=== PATIENT | female | born 1990 | race Caucasian/White ===

== ENCOUNTER → 2017-11-07 | Outpatient (CLI) | payer OTHER ==
[2017-11-07 17:24] LABS: HCT 34.6 % (34.0-46.0); HGB 11.5 gm/dL (11.4-16.0); MCH 31.3 pg (25.0-35.0); MCHC 33.4 g/dL (31.0-37.0); MCV 93.8 fL (80.0-100.0); Mean Platelet Volume 6.3; Platelet Count 290 k/uL (150-450); RBC 3.68 m/uL (3.80-5.40); RDW 13.3 % (11.5-15.5)
[2017-11-07 17:27] LABS: Glucose 76 mg/dL (74-99)
[2017-11-08 02:13] LABS: HIV AB P24 Non-Reactive (Non-Reactive); HIV P24 AG Non-Reactive (Non-Reactive)
--- NOTE | 2017-11-08 11:51 | US ---
EXAMINATION TYPE: Transabdominal DATE OF EXAM: 07/05/17 COMPARISON: NONE CLINICAL HISTORY: Z36 Confirm Dates. Dates, Unknown LMP EXAM PERFORMED: Transabdominal (TA) EXAM MEASUREMENTS: GESTATIONAL AGE / DATING Dates by LMP: LMP unknown Dates by Current Scan for: (10 weeks/4 days) EDC: 06/01/2018 MATERNAL ANATOMY Uterus: 10.5 x 7.1 x 7.1 cm Right Ovary: 3.8 x 2.4 x 2.4 cm Left Ovary: 3.1 x 1.5 x 1.5 cm Post CDS / Adnexa: no free fluid Presence of free fluid: no Presence of corpus luteal cyst: right ovarian lesion = 2.2 x 2.1 x 2.2 cm Presence of subchorionic bleed: no GESTATION / SURVEY CRL: 3.6 cm (10 weeks/4 days) MSD: seen, not measured Yolk Sac (normal less than 6mm): 3.9 mm Heart Rate: 175 bpm Rhythm: Normal IUP: Viable IUP Date of LMP: Unknown, Beta HcG (if available): Not available at this time Single live IUP measuring 10 weeks 4 days IMPRESSION: 1. Single intrauterine gestation estimated at 10 weeks 4 days gestation based on current crown-rump l ength. Cardiac activity measures 175 bpm.
== END | disposition home or self-care (01) ==
LOC: RADUSWWP 16:34
PROVIDERS: ATTEND Obstetrics & Gynecology
DX: Z36.9 Encounter for antenatal screening, unspecified (principal); O26.811 Pregnancy related exhaustion and fatigue, first trimester; Z3A.10 10 weeks gestation of pregnancy
CPT/HCPCS: 36415; 76801; 82565; 82947; 85027; 86762; 86780; 86850; 86900; 86901; 87340; 87390

== ENCOUNTER 2018-05-25 05:35 | Inpatient (IN) | payer OTHER ==
--- NOTE | 2018-05-24 22:01 | P.HPOB ---
History of Present Illness H&P Date: 05/24/18 Chief Complaint: Induction of labor This is a 27-year-old female 2 para 1 with an estimated date of confinement of 06/01/2018, estimated gestational age of 39-0/7 weeks, who presents to labor and delivery for induction of labor. She complains of irregular contractions and pressure. course has been essentially uncomplicated. labs Hepatitis B surface antigen-negative on reactive Rubella-immune Syphilis antibody-negative nonreactive HIV-nonreactive Random glucose-76 Hemoglobin-11.5 Blood type-A+ Antibody screen-negative Obstetrical ultrasound-normal anatomy One hour Glucola-125 Group B streptococcus-negative Obstetrical history: . History of 1 vaginal delivery at term with no complications. Gynecologic history: History of chlamydia treated in 2013. Social history: She is single. 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 Review of Systems Constitutional: Denies chills, Denies fever Eyes: denies blurred vision, denies pain Ears, nose, mouth and throat: Denies headache, Denies sore throat Respiratory: Denies cough Gastrointestinal: Reports abdominal pain (Irregular contractions) Genitourinary: Reports pelvic pain, Reports Musculoskeletal: Reports low back pain Integumentary: Denies pruritus, Denies rash Neurological: Denies numbness, Denies weakness Psychiatric: Denies anxiety, Denies depression Past Medical History Past Medical History: No Reported History History of Any Multi-Drug Resistant Organisms: None Reported Past Surgical History: No Surgical Hx Reported Past Anesthesia/Blood Transfusion Reactions: No Reported Reaction Past Psychological History: No Psychological Hx Reported Smoking Status: Current every day smoker Past Alcohol Use History: None Reported Past Drug Use History: None Reported - Past Family History Father Family Medical History: COPD Medications and Allergies Home Medications Medication Instructions Recorded Confirmed Type Pnv,Calcium 72/Iron/Folic Acid 1 tab PO DAILY 10/30/14 10/30/14 History [Pnv Plus Multivit Tab] Allergies Allergy/AdvReac Type Severity Reaction Status Date / Time No Known Allergies Allergy Verified 10/30/14 04:48 Exam Osteopathic Statement: *. No significant issues noted on an osteopathic structural exam other than those noted in the History and Physical/Consult. HEENT: Within normal limits Heart: Regular rate and rhythm Lungs: Clear to auscultation bilaterally Abdomen: Cervix: 4-1/2-5 cm/80%/-1 station heart tones: 140s by Doppler Extremities: Negative Maurisio Assessment and Plan (1) 39 weeks gestation of Status: Acute Code(s): Z3A.39 - 39 WEEKS GESTATION OF SNOMED Code( s): 64050339 Plan: Proceed with oxytocin induction of labor. Expected management. Epidural anesthesia if desired.
[2018-05-25] MEDS ORDERED: METHYLERGONOVINE 0.2 MG/ML 1 ML AMP IM PRN (05:58)
[2018-05-25] MEDS ORDERED: OXYTOCIN 30 UNITS/500 ML NS 30 UNIT in SALINE 1 500ML.BAG IV SCH (05:58)
[2018-05-25] MEDS ORDERED: TERBUTALINE 1 MG/ML VIAL SQ PRN (05:58)
[2018-05-25] MEDS ORDERED: LIDOCAINE 0.5% (PF) 5 MG/ML (50 ML SDV) SQ PRN (05:58)
[2018-05-25] MEDS ORDERED: CARBOPROST TROMETHAMINE 250 MCG/ML 1 ML AMP IM PRN (05:58)
[2018-05-25] MEDS ORDERED: LIDOCAINE 1% 20 ML VIAL (10MG/ML) FOR IV START INTRADERMA PRN (05:58)
[2018-05-25] MEDS ORDERED: OXYTOCIN 10 UNIT/ML 1 ML VIAL IM PRN (05:58)
[2018-05-25 06:04] VITALS: RESP 16; BMI 23.7
[2018-05-25] MEDS: LACTATED RINGERS 1,000 ML IV SCH ×2 (06:19→08:58)
[2018-05-25 06:23] LABS: Basophils % (A) 0 %; Eosinophils # (A) 0.2 k/uL (0-0.7); Eosinophils % (A) 2 %; HGB 12.8 gm/dL (11.4-16.0); Lymphocytes # (A) 2.6 k/uL (1.0-4.8); Lymphocytes % (A) 24 %; MCH 31.8 pg (25.0-35.0); MCV 99.3 fL (80.0-100.0); Mean Platelet Volume 7.5; Monocytes # (A) 0.6 k/uL (0-1.0); Monocytes % (A) 6 %; Neutrophils # (A) 6.7 k/uL (1.3-7.7); Neutrophils % (A) 64 %; Platelet Count 284 k/uL (150-450); RBC 4.03 m/uL (3.80-5.40); RDW 12.5 % (11.5-15.5); WBC 10.5 k/uL (3.8-10.6)
[2018-05-25] MEDS ORDERED: fentaNYL (PF) 50 MCG/ML 5 ML AMP ONE (08:26)
[2018-05-25] MEDS ORDERED: SODIUM CHLORIDE 0.9% 100 ML BAG ONE (08:26)
[2018-05-25] MEDS ORDERED: ROPIVACAINE 5MG/ML 20ML VIAL ONE (08:26)
[2018-05-25] MEDS ORDERED: IBUPROFEN 600 MG TAB PO PRN (11:28)
[2018-05-25] MEDS ORDERED: diphenhydrAMINE 25 MG CAP PO PRN (11:28)
[2018-05-25] MEDS ORDERED: SIMETHICONE 80 MG CHEWABLE PO PRN (11:28)
[2018-05-25] MEDS ORDERED: OXYTOCIN 20 UNITS/1000 ML NS 1,000 ML IV SCH (11:28)
[2018-05-25] MEDS ORDERED: HYDROCORTISONE 2.5% RECTAL CREAM 30 GM TUBE RECTAL PRN (11:28)
[2018-05-25] MEDS ORDERED: LANOLIN CREAM 5 GM TUBE TOPICAL PRN (11:28)
[2018-05-25] MEDS ORDERED: diphenhydrAMINE 50 MG/ML 1 ML VIAL IVP PRN ×2 (11:28)
[2018-05-25] MEDS ORDERED: BENZOCAINE/MENTHOL SPRAY 1 GM/SPRAY AEROSOL TOPICAL PRN (11:28)
[2018-05-25] MEDS ORDERED: WITCH HAZEL 1 EACH MED..PAD TOPICAL PRN (11:28)
[2018-05-25] MEDS ORDERED: ACETAMINOPHEN TAB 325 MG TAB PO PRN (11:28)
[2018-05-25] MEDS ORDERED: ZOLPIDEM 5 MG TAB PO PRN (11:28)
[2018-05-25] MEDS ORDERED: diphenhydrAMINE 50 MG CAP PO PRN (11:28)
[2018-05-25] MEDS: SENNOSIDES-DOCUSATE SODIUM 1 EACH TAB PO SCH ×2 (12:11→20:16)
--- NOTE | 2018-05-25 16:50 | P.PROBDLV ---
Vaginal Delivery Note - . Vaginal Delivery Note: The patient progressed to complete dilation after oxytocin induction of labor and artificial rupture membranes with clear fluid noted. She began pushing. 's head came to a crown. With one further push, the infant's head delivered across the perineum and a right occiput transverse lie followed by the anterior shoulder. Nose and mouth were bulb suctioned at the perineum. With one remaining push, the remainder the infant easily delivered and was placed on mother's abdomen. Brisk cry was noted immediately. A viable male infant was noted with scores of 9 at 1 minute and 9 at 5 minutes and infant weight of 7 lbs. 7 oz. Cord was clamped and cut and infant was taken to warmer for evaluation. Placenta delivered shortly thereafter, intact, with a three-vessel cord. There was noted a slight marginal cord insertion. Uterus contracted well after oxytocin was given and uterine massage was carried out. Inspection of the perineum revealed a first-degree perineal laceration and a small right periurethral laceration. These areas were anesthetized with 1% lidocaine and then sutured with 3-0 Vicryl suture in a running locked fashion. Estimated blood loss is approximately 200 mL's. Mother and are in stable condition.
[2018-05-26 07:42] LABS: Basophils # (A) 0.1 k/uL (0-0.2); Basophils % (A) 0 %; Eosinophils # (A) 0.2 k/uL (0-0.7); Eosinophils % (A) 2 %; HGB 11.8 gm/dL (11.4-16.0); Lymphocytes # (A) 2.7 k/uL (1.0-4.8); Lymphocytes % (A) 23 %; MCH 32.6 pg (25.0-35.0); MCHC 32.8 g/dL (31.0-37.0); MCV 99.6 fL (80.0-100.0); Monocytes # (A) 0.7 k/uL (0-1.0); Monocytes % (A) 7 %; Neutrophils # (A) 7.4 k/uL (1.3-7.7); Neutrophils % (A) 65 %; Platelet Count 228 k/uL (150-450); RBC 3.62 m/uL (3.80-5.40); RDW 12.6 % (11.5-15.5); WBC 11.5 k/uL (3.8-10.6)
[2018-05-26] MEDS: SENNOSIDES-DOCUSATE SODIUM 1 EACH TAB PO SCH (08:11)
[2018-05-26 08:38] VITALS: BP 107/69; PULSE 64; TEMP 97.4
--- NOTE | 2018-05-26 10:56 | P.DS ---
Providers Date of admission: 05/25/18 05:35 Expected date of discharge: 05/26/18 Attending physician: Jenna Keenan Primary care physician: Stated None - Discharge Diagnosis(es) (1) 39 weeks gestation of Current Visit: No Status: Acute Hospital Course: This is a 27-year-old female 2 para 1 at 39-0/7 weeks who presented for induction of labor. She underwent oxytocin induction of labor and delivered vaginally a viable male on 05/25/2018 with scores of 9 at 1 minute and 9 at 5 minutes and infant weight of 7 lbs. 7 oz. Post course has been uncomplicated. She is bottle feeding. Lochia is decreasing. Pain is well -controlled. Vital signs are stable. Abdomen is soft with fundus firm and nontender. Extremities show negative Homans. Impression is status post vaginal delivery day #1. Plan is to discharge home today. Routine instructions are given. She will be given a prescription for ibuprofen. She is advised to follow up in the office in 6 weeks for a check. She is advised to call the office if she has any further questions or concerns prior to her appointment time. Procedures: Oxytocin induction of labor Spontaneous vaginal delivery of a viable male infant on 05/25/2018 Patient Condition at Discharge: Stable Plan - Discharge Summary New Discharge Prescriptions: New Ibuprofen [Motrin] 600 mg PO Q6HR PRN #60 tab PRN Reason: Mild Pain Or Fever >= 100.5 Discharge Medication List Ibuprofen [Motrin] 600 mg PO Q6HR PRN #60 tab 05/26/18 [Rx] Follow up Appointment(s)/Referral(s): Jenna Keenan DO [Doctor of Osteopathic Medicine] - 6 Weeks Activity/Diet/Wound Care/Special Instructions: Instructions 1. Do not begin any exercise program for 3 weeks. 2. Do not resume sexual relations for 3 weeks or longer if uncomfortable. 3. You may take tub baths or showers at any time. 4. You may use tampons if desired after 3 weeks. 5. Keep the area of episiotomy (stitches) clean and dry. 6. If you are not nursing, wear a good fitting, supportive bra during the day and limit fluid intake for at least 1 week to prevent breast engorgement. 7. Call the office, [phone], within the next week to make appointment for your 6 week checkup if it has not already been made. 8. Report any of the following occurrences to the doctor promptly: a. Heavy, excessive bleeding b. Chills, fever c. Burning or frequency of urination d. Pain or redness and breasts if nursing e. Increasing pain or swelling in episiotomy (stitches). In addition to the above instructions, the following additional should be followed: 1. No heavy lifting or straining (exercising) until after 6 week checkup. 2. Keep abdominal incision clean and dry: You may wear a dressing if more comfortable. 3. Make office appointment for 10 days after going home or as instructed by her doctor. Discharge Disposition: HOME SELF-CARE
== END 2018-05-26 12:45 | disposition home or self-care (01) | DRG 807 ==
LOC: 4FBP 05:35
PROVIDERS: ADMIT Obstetrics & Gynecology; ATTEND Obstetrics & Gynecology
PROC: 10E0XZZ Delivery of Products of Conception, External Approach (ICD-10-PCS; principal; 2018-05-25)
PROC: 10907ZC Drainage of Amniotic Fluid, Therapeutic from Products of Conception, Via Natural or Artificial Opening (ICD-10-PCS; 2018-05-25)
PROC: 0HQ9XZZ Repair Perineum Skin, External Approach (ICD-10-PCS; 2018-05-25)
PROC: 3E0R3BZ Introduction of Anesthetic Agent into Spinal Canal, Percutaneous Approach (ICD-10-PCS; 2018-05-25)
PROC: 0UQMXZZ Repair Vulva, External Approach (ICD-10-PCS; 2018-05-25)
PROC: 3E033VJ Introduction of Other Hormone into Peripheral Vein, Percutaneous Approach (ICD-10-PCS; 2018-05-25)
DX: O32.2XX0 Maternal care for transverse and oblique lie, not applicable or unspecified (principal); Z37.0 Single live birth; O99.334 Smoking (tobacco) complicating childbirth; F17.200 Nicotine dependence, unspecified, uncomplicated; O71.82 Other specified trauma to perineum and vulva; O70.0 First degree perineal laceration during delivery; Z3A.39 39 weeks gestation of pregnancy; Z82.5 Family history of asthma and other chronic lower respiratory diseases; Z79.899 Other long term (current) drug therapy
CPT/HCPCS: 85025; 86850; 86900; 86901

== ENCOUNTER 2019-03-13 15:24 | Inpatient (IN) | payer OTHER ==
[2019-03-13] MEDS ORDERED: OXYTOCIN 20 UNITS/1000 ML NS 1,000 ML IV SCH ×2 (15:30→16:15)
[2019-03-13] MEDS ORDERED: NALOXONE 0.4 MG/ML 1 ML VIAL IV PRN (15:34)
--- NOTE | 2019-03-13 15:34 | ED ---
General Adult HPI - General Stated complaint: /delivery Source: EMS Mode of arrival: EMS Limitations: no limitations - History of Present Illness Initial comments: The patient is a 28-year-old female who is who arrives just immediately after delivery. She was 33 weeks . She went to work this morning and had the sensation that she had a have a bowel movement. She then noted that she started having lower abdominal cramping and bleeding. EMS was called and during transport they stated that the patient was delivering the head. The patient does arrive to our facility and the baby is completely delivered as well as the placenta. She does have a history of 2 previous spontaneous vaginal deliveries. No Occasions this . Her due date was April 25. She sees Dr[address] Keenan and has received care. There are no other alleviating, precipitating or modifying factors - Related Data Previous Rx's Medication Instructions Recorded Ibuprofen [Motrin] 600 mg PO Q6HR PRN #60 tab 05/26/18 Allergies Allergy/AdvReac Type Severity Reaction Status Date / Time No Known Allergies Allergy Verified 05/25/18 05:58 Review of Systems ROS Statement: Those systems with pertinent positive or pertinent negative responses have been documented in the HPI. ROS Other: All systems not noted in ROS Statement are negative. Past Medical History Past Medical History: No Reported History History of Any Multi-Drug Resistant Organisms: None Reported Past Surgical History: Section Past Anesthesia/Blood Transfusion Reactions: No Reported Reaction Past Psychological History: No Psychological Hx Reported Smoking Status: Current every day smoker Past Alcohol Use History: None Reported Past Drug Use History: None Reported - Past Family History Father Family Medical History: COPD General Exam Limitations: no limitations Course Vital Signs 03/13/19 15:26 Temperature 97.5 F L Pulse Rate 68 Respiratory 19 Rate Blood Pressure 112/78 O2 Sat by Pulse 99 Oximetry Medical Decision Making - Medical Decision Making Upon arrival the patient was placed in a trauma bay 1. She does have delivering the baby at this time. Baby is placed in the warmer. She has fully delivered the placenta. Abdomen is palpated in the uterus is hard. Vitals are obtained and are stable. We did call Dr. Woods discussed the case with him. Dr. Dodd does arrive to the emergency department. She does request transfer the patient upstairs. We did draw a CBC and type and screen off of the patient. She remained in stable condition and was transported to the floor - Lab Data Result diagrams: 03/13/19 16:48 Disposition Clinical Impression: Normal vaginal delivery Disposition: ADMITTED IP TO THIS HOSP Condition: Stable Is patient prescribed a controlled substance at d/c from ED?: No Decision to Admit Reason: Admit from EC Decision Date: 03/13/19 Decision Time: 15:34
[2019-03-13] MEDS ORDERED: diphenhydrAMINE 50 MG/ML 1 ML VIAL IVP PRN ×2 (16:02)
[2019-03-13] MEDS ORDERED: ZOLPIDEM 5 MG TAB PO PRN (16:02)
[2019-03-13] MEDS ORDERED: diphenhydrAMINE 25 MG CAP PO PRN (16:02)
[2019-03-13] MEDS ORDERED: WITCH HAZEL 1 EACH MED..PAD TOPICAL PRN (16:02)
[2019-03-13] MEDS ORDERED: HYDROCORTISONE 2.5% RECTAL CREAM 30 GM TUBE RECTAL PRN (16:02)
[2019-03-13] MEDS ORDERED: IBUPROFEN 600 MG TAB PO PRN (16:02)
[2019-03-13] MEDS ORDERED: diphenhydrAMINE 50 MG CAP PO PRN (16:02)
[2019-03-13] MEDS ORDERED: ACETAMINOPHEN TAB 325 MG TAB PO PRN (16:02)
[2019-03-13] MEDS ORDERED: BENZOCAINE/MENTHOL SPRAY 1 GM/SPRAY AEROSOL TOPICAL PRN (16:02)
[2019-03-13] MEDS ORDERED: LANOLIN CREAM 5 GM TUBE TOPICAL PRN (16:02)
[2019-03-13] MEDS ORDERED: SIMETHICONE 80 MG CHEWABLE PO PRN (16:02)
[2019-03-13 16:09] VITALS: RESP 16; TEMP 97.3
--- NOTE | 2019-03-13 16:52 | P.HPOB ---
History of Present Illness H&P Date: 03/13/19 Chief Complaint: delivered in ambulance 28 year old presented to ED after delivering a 33 weeks and 5 days in the ambulance en route to hospital. SHe was having contractions at work and then called an ambulance when she got very uncomfortable. When I saw the patient she was resting comfortably in the ED. 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 Pt had delivered the placenta as well. Review of Systems All systems: negative Constitutional: Denies chills, Denies fever Eyes: denies blurred vision, denies pain Ears, nose, mouth and throat: Denies headache, Denies sore throat Cardiovascular: Denies chest pain, Denies shortness of breath Respiratory: Denies cough Gastrointestinal: Denies abdominal pain, Denies diarrhea, Denies nausea, Denies vomiting Genitourinary: Denies dysuria, Denies hematuria Musculoskeletal: Denies myalgias Integumentary: Denies pruritus, Denies rash Neurological: Denies numbness, Denies weakness Psychiatric: Denies anxiety, Denies depression Endocrine: Denies fatigue, Denies weight change Past Medical History Past Medical History: No Reported History Additional Past Medical History / Comment(s): OB history: 2 previous vaginal deliveries. THis is her third and she has been seeing Dr Keenan since February but has not been consistent in her appointments. History of Any Multi-Drug Resistant Organisms: None Reported Past Surgical History: No Surgical Hx Reported Past Anesthesia/Blood Transfusion Reactions: No Reported Reaction Past Psychological History: No Psychological Hx Reported Smoking Status: Current every day smoker Past Alcohol Use History: None Reported Past Drug Use History: None Reported - Past Family History Father Family Medical History: COPD Medications and Allergies Home Medications Medication Instructions Recorded Confirmed Type Ibuprofen [Motrin] 600 mg PO Q6HR PRN #60 tab 05/26/18 Rx Allergies Allergy/AdvReac Type Severity Reaction Status Date / Time No Known Allergies Allergy Verified 05/25/18 05:58 Exam Osteopathic Statement: *. No significant issues noted on an osteopathic structural exam other than those noted in the History and Physical/Consult. Vital Signs Temp Pulse Pulse Resp BP BP Pulse Ox 03/13/19 16:17 73 16 122/75 03/13/19 16:02 76 16 117/76 100 03/13/19 16:00 77 16 122/75 03/13/19 15:47 97.3 F L 76 16 117/76 100 03/13/19 15:26 97.5 F L 68 19 112/78 99 Intake and Output 03/13/19 03/13/19 03/13/19 06:59 14:59 22:59 Other: Weight 63.7 kg HEart: RRR Luhngs: CTAB Abdomen: fundus firm 2 fingerbreadths below umbilicus Extremeties: neg opal's I also evaluated the placenta which grossly appeared to all be present. Assessment and Plan (1) Status post normal vaginal delivery Narrative/Plan: and precipitous delivery in the ambulance Current Visit: Yes Status: Acute Code(s): [id number] - SNOMED Code(s): 775586334 Plan: 1. post care 2. monitor bleeding
[2019-03-13 17:10] LABS: Basophils % (A) 0 %; Eosinophils # (A) 0.1 k/uL (0-0.7); Eosinophils % (A) 0 %; HCT 36.1 % (34.0-46.0); HGB 12.3 gm/dL (11.4-16.0); Lymphocytes # (A) 1.3 k/uL (1.0-4.8); Lymphocytes % (A) 9 %; MCH 32.7 pg (25.0-35.0); MCHC 34.2 g/dL (31.0-37.0); MCV 95.6 fL (80.0-100.0); Mean Platelet Volume 7.9; Monocytes # (A) 0.5 k/uL (0-1.0); Monocytes % (A) 3 %; Neutrophils # (A) 12.7 k/uL (1.3-7.7); Neutrophils % (A) 86 %; Platelet Count 252 k/uL (150-450); RBC 3.77 m/uL (3.80-5.40); RDW 12.4 % (11.5-15.5); WBC 14.8 k/uL (3.8-10.6)
[2019-03-13 17:58] VITALS: BP 121/74; PULSE 48
[2019-03-13] MEDS ORDERED: SENNOSIDES-DOCUSATE SODIUM 1 EACH TAB PO SCH (20:00)
--- NOTE | 2019-03-16 07:33 | P.DS ---
Providers Date of admission: 03/13/19 16:02 Expected date of discharge: 03/13/19 Attending physician: Aura Dodd Primary care physician: Stated None - Discharge Diagnosis(es) (1) Status post normal vaginal delivery Status: Acute Hospital Course: Pt presented after delivery of a infant in the ambulance. She went through recovery, including IV pitocin and fluids, and was stable. She was discharged home the same evening as she delivered, about 6 hours later in stable condition to follow up with dr Keenan in 6 weeks. Patient Condition at Discharge: Stable Plan - Discharge Summary Discharge Rx Participant: No New Discharge Prescriptions: No Action Ibuprofen [Motrin] 600 mg PO Q6HR PRN #60 tab PRN Reason: Mild Pain Or Fever >= 100.5 Discharge Medication List Ibuprofen [Motrin] 600 mg PO Q6HR PRN #60 tab 05/26/18 [Rx] Follow up Appointment(s)/Referral(s): None,Stated [Primary Care Provider] - 1-2 days Discharge Disposition: HOME SELF-CARE
== END 2019-03-13 18:50 | disposition home or self-care (01) | DRG 776 ==
LOC: EC 15:24 → 4FBP 15:34 → OBSVTOIN 16:02
PROVIDERS: ADMIT Obstetrics & Gynecology; ATTEND Obstetrics & Gynecology
DX: Z39.0 Encounter for care and examination of mother immediately after delivery (principal); Z37.0 Single live birth; Z3A.33 33 weeks gestation of pregnancy; Z82.5 Family history of asthma and other chronic lower respiratory diseases
CPT/HCPCS: 85025; 86850; 86900; 86901; 88307; 99284

== ENCOUNTER → 2020-04-09 | Outpatient (CLI) | payer OTHER | END | disposition home or self-care (01) | LOC: LABWHC1 12:05 | PROVIDERS: ATTEND Obstetrics & Gynecology | DX: N92.6 Irregular menstruation, unspecified (principal) | CPT/HCPCS: 36415; 84702 ==

== ENCOUNTER 2020-06-24 21:14 | Emergency (ER) | payer OTHER ==
[2020-06-24 21:20] VITALS: BP 134/83; PULSE 74; RESP 18; TEMP 98.3
--- NOTE | 2020-06-24 22:30 | ED ---
URI HPI - General Chief Complaint: Upper Respiratory Infection Stated Complaint: Cough,throat pain Time Seen by Provider: 06/24/20 21:39 Source: patient Mode of arrival: ambulatory Limitations: no limitations - History of Present Illness Initial Comments: 29-year-old female presenting today for chief complaint of headaches cough and sore throat. Patient states she has had headaches cough and sore throat on and off for the past few days she states she's had positive covert exposure. Patient was concerned she had contracted the illness. Patient denies any nausea vomiting visual changes weakness or sensation deficits of the upper or lower extremity. She denies any neck stiffness abdominal pain nausea vomiting diarrhea or rashes. Patient denies any difficulty breathing or swallowing. Patient has no additional complaints she denies putting C upon arrival she appears well nontoxic she is in no acute distress. Patient states she is only presenting to the emergency department today for a covid test. - Related Data Home Medications Medication Instructions Recorded Confirmed Medroxyprogesterone Acetate 150 mg IM Q90D 06/24/20 06/24/20 [Depo-Provera] Allergies Allergy/AdvReac Type Severity Reaction Status Date / Time No Known Allergies Allergy Verified 06/24/20 22:32 Review of Systems ROS Statement: Those systems with pertinent positive or pertinent negative responses have been documented in the HPI. ROS Other: All systems not noted in ROS Statement are negative. Past Medical History Past Medical History: No Reported History History of Any Multi-Drug Resistant Organisms: None Reported Past Surgical History: No Surgical Hx Reported Past Anesthesia/Blood Transfusion Reactions: No Reported Reaction Past Psychological History: Anxiety, Depression Smoking Status: Current every day smoker Past Alcohol Use History: None Reported Past Drug Use History: Marijuana - Past Family History Father Family Medical History: COPD General Exam - General Exam Comments Initial Comments: General: The patient is awake and alert, in no distress, and does not appear acutely ill. Eye: +3 mm pupils are equal, round and reactive to light, extra-ocular movements are intact. No nystagmus. There is normal conjunctiva bilaterally. No signs of icterus. No photophobia Ears, nose, mouth and throat: There are moist mucous membranes and no oral lesions. Oropharynx was not erythematous there is no tonsillar enlargement exudates or lesions. Uvula midline. No anterior cervical lymphadenopathy. No tripoding, no drooling. Neck: The neck is supple, there is no tenderness or JVD. No nuchal rigidity negative Brudzinski and Kernig Cardiovascular: There is a regular rate and rhythm. No murmur, rub or gallop is appreciated. Respiratory: Lungs are clear to auscultation, respirations are non-labored, breath sounds are equal. No wheezes, stridor, rales, or rhonchi. No retractions or abdominal breathing. Gastrointestinal: Soft, non-distended, non-tender abdomen without masses or organomegaly noted. There is no rebound or guarding present. Bowel sounds are unremarkable. Musculoskeletal: Normal ROM, no tenderness. Strength 5/5. Sensation intact. Radial pulses equal bilaterally 2+. Neurological: A&O x 3. CN II-XII intact, There are no obvious motor or sensory deficits. Coordination appears grossly intact. Speech appears normal, no muffling. Skin: Skin is warm and dry and no rashes or lesions are noted. No extremity edema Psychiatric: Cooperative Limitations: no limitations Course Vital Signs 06/24/20 06/24/20 21:17 22:23 Temperature 98.3 F Pulse Rate 74 Respiratory 18 18 Rate Blood Pressure 134/83 O2 Sat by Pulse 100 Oximetry Medical Decision Making - Medical Decision Making Covid (-). suspect false (-) with hx provided and known exposure. recommend quarantining and pcp f/u. return for worsening symptoms. pt agreeable discharged appearing well. - Lab Data Lab Results 06/24/20 Range/Units 22:00 Coronavirus (PCR) Not Detected (Not Detectd) Disposition Clinical Impression: Cough, Sore throat Disposition: HOME SELF-CARE Condition: Good Instructions (If sedation given, give patient instructions): Upper Respiratory Infection (ED) Additional Instructions: Please use medication as discussed. Please follow-up with family doctor in the next 2 days, quarantine for the next 7 days until symptom free. Please return to emergency room if the symptoms increase or worsen or for any other concerns. Is patient prescribed a controlled substance at d/c from ED?: No Referrals: Tanya Cortes MD [Primary Care Provider] - 1-2 days Time of Disposition: 22:30
== END 2020-06-24 22:36 | disposition home or self-care (01) ==
LOC: EC 21:14
DX: J02.9 Acute pharyngitis, unspecified (principal); R05 Cough; F17.200 Nicotine dependence, unspecified, uncomplicated; Z20.822 Contact with and (suspected) exposure to COVID-19; F41.9 Anxiety disorder, unspecified; F32.9 Major depressive disorder, single episode, unspecified
CPT/HCPCS: 87635; 99283

== ENCOUNTER → 2023-05-13 | Outpatient (CLI) | payer OTHER ==
--- NOTE | 2023-05-18 10:16 | MR ---
EXAM: MR wrist LT wo con DATE OF EXAM: 05/13/2023 COMPARISON: None HISTORY: Left wrist pain, abnormal xray. TECHNIQUE: Multiplanar, multisequence images of the left wrist were acquired without contrast. FINDINGS: BONES/JOINTS: The lunate demonstrates diffuse low T1/low T2 signal, consistent with osteonecrosis. No rmal alignment. No ulnar variance. Distal radioulnar joint is normal. No joint effusion. LIGAMENTS: Scapholunate and lunotriquetral ligaments are normal. Extrinsic carpal ligaments are liz l. Triangular fibrocartilaginous complex is normal. TENDONS: Flexor tendons are normal. Extensor tendons are normal. SOFT TISSUES: Carpal tunnel is normal. Guyon's canal is normal. Nonspecific synovitis along the dorsa l aspect of the carpus. 5 mm ganglion cysts aspect of the ulnotriquetral joint. 6 x 13 x 9 mm ganglio n cyst along the radial aspect of the scaphotrapezium joint.. NEUROVASCULAR: The median nerve is normal in size, signal, and location. The ulnar nerve is normal in size, signal, and location. Vascular structures are normal OTHER: Normal. IMPRESSION: 1. 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 2. Nonspecific synovitis dorsal aspect of the carpus. 3. Ganglion cysts at the volar/ulnar and radial aspect of the wrist.
== END | disposition home or self-care (01) ==
LOC: RADMRIMAIN 09:25
PROVIDERS: ATTEND Pediatrics
DX: R93.7 Abnormal findings on diagnostic imaging of other parts of musculoskeletal system (principal); M65.9 Synovitis and tenosynovitis, unspecified; M67.432 Ganglion, left wrist